=== PATIENT | male | born 1990 | race American Indian/Alaskan Native ===

== ENCOUNTER 2017-03-13 22:16 | Emergency (ER) | payer OTHER ==
[2017-03-13 22:28] VITALS: BMI 28.3
[2017-03-13 22:33] VITALS: O2SAT 99
[2017-03-13] MEDS ORDERED: Sodium Chloride 0.9% 1,000 ML IV STA (22:45)
--- NOTE | 2017-03-13 22:49 | ED PDOC ---
Arrival/HPI <EladioRoland - Last Filed: 03/13/17 23:03> - General Historian: Patient <Sue Palacio A - Last Filed: 03/14/17 01:54> - General Chief Complaint: Abdominal Pain Time Seen by Provider: 03/13/17 22:33 - History of Present Illness Narrative History of Present Illness (Text): 03/13/17 22:47 27yo male with PMhx of Asthma present with sudden onset of RLQ with associated nausea 30minutes ago. He denies previous history. Notes that his job involves lifting constantly and this pain started while at work. He denies vomiting , diarrhea, fever, chills, hematemesis, hematochezia, sick contact, urinary symptoms, any other complaint. (Sue Palacio A) Past Medical History - Provider Review Nursing Documentation Reviewed: Yes - Psychiatric Hx Substance Use: No <Sue Palacio A - Last Filed: 03/14/17 01:54> Family/Social History - Physician Review Nursing Documentation Reviewed: Yes Family/Social History: Unknown Family HX Smoking Status: n Hx Alcohol Use: No Hx Substance Use: No <Sue Palacio A - Last Filed: 03/14/17 01:54> Allergies/Home Meds <Eladio,Roland - Last Filed: 03/13/17 23:03> <Sue Palacio A - Last Filed: 03/14/17 01:54> Allergies/Adverse Reactions: Allergies No Known Allergies Allergy (Verified 03/13/17 22:45) Review of Systems - Physician Review All systems were reviewed & negative as marked: Yes - Review of Systems Constitutional: Normal Eyes: Normal ENT: Normal Respiratory: Normal Cardiovascular: Normal Gastrointestinal: Abdominal Pain, Nausea. absent: Constipation, Diarrhea, Vomiting, Hematochezia, Hematemesis Genitourinary Male: Normal Musculoskeletal: Normal Skin: Normal Neurological: Normal Endocrine: Normal Hemo/Lymphatic: Normal Psychiatric: Normal <Sue Palacio A - Last Filed: 03/14/17 01:54> Physical Exam Vital Signs Reviewed: Yes Temperature: Afebrile Blood Pressure: Normal Pulse: Regular Respiratory Rate: Normal Appearance: Positive for: Well-Appearing, Non-Toxic, Comfortable Pain Distress: None Mental Status: Positive for: Alert and Oriented X 3 - Systems Exam Head: Present: Atraumatic, Normocephalic Pupils: Present: PERRL Extroacular Muscles: Present: EOMI Conjunctiva: Present: Normal Mouth: Present: Moist Mucous Membranes Neck: Present: Normal Range of Motion Respiratory/Chest: Present: Clear to Auscultation, Good Air Exchange. No: Respiratory Distress, Accessory Muscle Use Cardiovascular: Present: Regular Rate and Rhythm, Normal S1, S2. No: Murmurs Abdomen: Present: Tenderness (RLQ), Normal Bowel Sounds, Guarding (Voluntary), Other (Soft). No: Distention, Peritoneal Signs, Rebound, McBurney's Point Tender, Rovsing's Sign Present Back: Present: Normal Inspection Upper Extremity: Present: Normal Inspection. No: Cyanosis, Edema Lower Extremity: Present: Normal Inspection. No: Edema Neurological: Present: GCS=15, CN II-XII Intact, Speech Normal Skin: Present: Warm, Dry, Normal Color. No: Rashes Psychiatric: Present: Alert, Oriented x 3, Normal Insight, Normal Concentration <Sue Palacio - Last Filed: 03/14/17 01:54> Vital Signs Temp Pulse Resp BP Pulse Ox 03/13/17 22:28 98.6 F 64 18 132/80 99 Medical Decision Making <Roland Hendricks - Last Filed: 03/13/17 23:03> <Sue Palacio - Last Filed: 03/14/17 01:54> ED Course and Treatment: 03/13/17 22:50 27yo male in ED for RLQ with nausea Labs ordered 1L NS, Zofran, Pepcid and Toradol ordered Abdominal CT ordered will re evaluate and dispo 03/14/17 01:50 Lab was unremarkable Abdominal/Pelvic CT Negative Patient's pain improved on re evaluation. Pt's pain could be secondary to inguinal ligament strain from lifting. He will be DC home with ibuprofen. Advised to avoid lifting weight for few days. Referred to his PMD. TRT Ed for any new or worsening symptoms. (Sue Palacio) - Lab Interpretations Lab Results: 03/13/17 22:50 03/13/17 22:50 Lab Results 03/13/17 22:50: Sodium 139, Potassium 3.6, Chloride 101, Carbon Dioxide 29, Anion Gap 12, BUN 14, Creatinine 1.1, Est GFR ( Amer) > 60, Est GFR (Non- Af Amer) > 60, Random Glucose 87, Calcium 9.2, Total Bilirubin 0.7, AST 42, ALT 42, Alkaline Phosphatase 68, Total Protein 8.5 H, Albumin 4.6, Globulin 3.9, Albumin/Globulin Ratio 1.2, Lipase 176 03/13/17 22:50: PT 12.5, INR 1.14 H, APTT 38.4 H 03/13/17 22:50: WBC 6.2, RBC 4.94, Hgb 14.9, Hct 43.8, MCV 88.7, MCH 30.2, MCHC 34.0, RDW 13.1, Plt Count 291, MPV 9.3, Gran % 52.9, Lymph % (Auto) 36.7 H, [place] % (Auto) 8.6 H, Eos % (Auto) 1.1 L, Baso % (Auto) 0.7, Gran # 3.25, Lymph # 2.3, [place] # 0.5, Eos # 0.1, Baso # 0.04 - RAD Interpretation Radiology Orders: 03/13/17 22:47 ABD & PELVIS IV CONTRAST ONLY [CT] Stat - Medication Orders Current Medication Orders: Discontinued Medications Famotidine (Pepcid) 20 mg IVP STAT STA Stop: 03/13/17 22:46 Last Admin: 03/13/17 23:21 Dose: 20 mg IVP Administration Document 03/13/17 23:21 EQ (Rec: 03/13/17 23:21 EQ [id number]) Charges for Administration # of IVP Administrations 1 Sodium Chloride (Sodium Chloride 0.9%) 1,000 mls @ 1,000 mls/hr IV .Q1H STA Stop: 03/13/17 23:44 Last Admin: 03/13/17 23:21 Dose: 1,000 mls/hr eMAR Start Stop Document 03/13/17 23:21 EQ (Rec: 03/13/17 23:22 EQ [id number]) Intravenous Solution Start Date 03/13/17 Start Time 23:22 Ketorolac Tromethamine (Toradol) 30 mg IVP STAT STA Stop: 03/13/17 22:46 Last Admin: 03/13/17 23:22 Dose: 30 mg MAR Pain Assessment Document 03/13/17 23:22 EQ (Rec: 03/13/17 23:22 EQ [id number]) Pain Reassessment Is this a pain reassessment? No Sleep Is patient sleeping during reassessment? No Presence of Pain Presence of Pain Yes IVP Administration Document 03/13/17 23:22 EQ (Rec: 03/13/17 23:22 EQ [id number]) Charges for Administration # of IVP Administrations 1 Re-Assess: WILLIAM Pain Assessment Document 03/14/17 00:22 SC (Rec: 03/14/17 00:50 SC [id number]) Pain Reassessment Is this a pain reassessment? Yes Sleep Is patient sleeping during reassessment? No Presence of Pain Presence of Pain No Ondansetron HCl (Zofran Inj) 4 mg IVP STAT STA Stop: 03/13/17 22:46 Last Admin: 03/13/17 23:22 Dose: 4 mg IVP Administration Document 03/13/17 23:22 EQ (Rec: 03/13/17 23:22 EQ [id number]) Charges for Administration # of IVP Administrations 1 - PA / [employer] / Resident Statement / has reviewed & agrees with the documentation as recorded. / has examined the patient and agrees with the treatment plan. <Roland Hendricks - Last Filed: 03/13/17 23:03> Disposition/Present on Arrival <Roland Hendricks - Last Filed: 03/13/17 23:03> - Present on Arrival Any Indicators Present on Arrival: No History of DVT/PE: No History of Uncontrolled Diabetes: No Urinary Catheter: No History of Decub. Ulcer: No History Surgical Site Infection Following: None - Disposition Have Diagnosis and Disposition been Completed?: Yes Disposition Time: 01:50 Patient Plan: Discharge <Sue Palacio - Last Filed: 03/14/17 01:54> - Disposition Diagnosis: Abdominal pain Disposition: HOME/ ROUTINE Condition: STABLE Discharge Instructions (ExitCare): Abdominal Pain (ED) Additional Instructions: follow up with your doctor Return to ED for any new symptoms Prescriptions: Ibuprofen [Motrin Tab] 600 mg PO Q6 #20 tab Referrals: Johann Song, [Primary Care Provider] - Follow up with primary Forms: [employer] (French), WORK NOTE
[2017-03-13 23:15] LABS: BASO # 0.04 K/mm3 (0.0-2.0); BASO % 0.7 % (0.0-3.0); EOS # 0.1 (0.0-0.7); EOS % 1.1 % (1.5-5.0); GRAN # 3.25 (1.4-6.5); GRAN % 52.9 % (50.0-68.0); HEMATOCRIT 43.8 % (42.0-52.0); LYMPH # 2.3 (1.2-3.4); LYMPH % 36.7 % (22.0-35.0); MEAN CELL VOLUME 88.7 fl (80.0-105.0); MEAN CORPUSCULAR HEMOGLOBIN 30.2 pg (25.0-35.0); MEAN PLATELET VOLUME 9.3 fl (7.0-11.0); MONO # 0.5 (0.1-0.6); MONO % 8.6 % (1.0-6.0); RED CELL DISTRIBUTION WIDTH 13.1 % (11.5-14.5); WHITE BLOOD COUNT 6.2 10^3/ul (4.5-11.0)
[2017-03-13 23:21] LABS: ALKALINE PHOSPHATASE 68 U/L (38-126); ALT/SGPT 42 U/L (7-56); AST/SGOT 42 U/L (17-59); BILIRUBIN,TOTAL 0.7 mg/dL (0.2-1.3); BLOOD UREA NITROGEN 14 mg/dL (7-21); CALCIUM 9.2 mg/dL (8.4-10.5); CARBON DIOXIDE 29 mmol/L (21-33); CHLORIDE 101 mmol/L (98-107); GFR AFRICAN-AMERICAN > 60; GLUCOSE,RANDOM 87 mg/dL (70-110); LIPASE 176 U/L (23-300); POTASSIUM 3.6 mmol/L (3.6-5.0); SODIUM 139 mmol/L (132-148); TOTAL PROTEIN 8.5 g/dL (5.8-8.3)
[2017-03-13 23:25] LABS: INR 1.14 (0.93-1.08); PARTIAL THROMBOPLASTIN TIME 38.4 Seconds (25.1-36.5)
[2017-03-14 00:08] LABS: ALB/GLOB RATIO 1.2 (1.1-1.8)
[2017-03-14] MEDS ORDERED: Iohexol 350 MG/100 ML VIAL ONE (00:11)
--- NOTE | 2017-03-14 01:45 | CT ---
EXAM: CT Abdomen and Pelvis With Intravenous Contrast CLINICAL HISTORY: 27 years old, male; Pain; Abdominal pain; Flank; Right lower quadrant (rlq); Additional info: Rlq pain TECHNIQUE: Axial computed tomography images of the abdomen and pelvis with intravenous contrast. All CT scans at this facility use one or more dose reduction techniques, viz.: automated exposure control; ma/kV adjustment per patient size (including targeted exams where dose is matched to indication; i.e. head); or iterative reconstruction technique. MIP reconstructed images were created and reviewed. Coronal and sagittal reformatted images were created and reviewed. CONTRAST: 100 mL of [id number] administered intravenously. COMPARISON: No relevant prior studies available. FINDINGS: Lower thorax: Minimal atelectasis. ABDOMEN: Liver: Unremarkable. No mass. Gallbladder and bile ducts: No calcified stones. No ductal dilation. Pancreas: No ductal dilation. No mass. Spleen: No splenomegaly. Adrenals: No mass. Kidneys and ureters: No mass. No hydronephrosis. Stomach and bowel: No definite mural thickening. Few minimally distended loops of small bowel, likely ileus. Appendix: Normal caliber. No inflammation. PELVIS: Bladder: Unremarkable. Reproductive: Unremarkable as visualized. ABDOMEN and PELVIS: Intraperitoneal space: No significant fluid collection. No free air. Bones/joints: No acute fracture. Soft tissues: Unremarkable. Vasculature: Unremarkable. No aneurysm. Lymph nodes: No pathologically enlarged lymph nodes. IMPRESSION: 1. No definite acute intraabdominal abnormality. 2. Incidental/non-acute findings are described above.
[2017-03-14 02:01] VITALS: BP 126/82; PULSE 82; RESP 16; TEMP 98
== END 2017-03-14 02:03 | disposition home or self-care (01) ==
LOC: ED 22:16
DX: R10.31 Right lower quadrant pain (principal)
CPT/HCPCS: 74177; 80053; 83690; 85025; 85610; 85730; 96374; 96375; 99283; J1885; J2405; J7040; Q9967